=== PATIENT | female | born 1955 | race Caucasian/White ===

== ENCOUNTER → 2019-07-15 | Outpatient (CLI) | payer MEDICARE ==
--- NOTE | 2019-07-16 12:05 | SLEEP ---
DATE OF STUDY: 07/15/2019 SLEEP STUDY ATTENDING PHYSICIAN: Dr. Bry Alarcon. INDICATIONS: The patient is 64 years' old who weighs 248 pounds with a BMI of 43. The patient's [place] score was 17. The patient had a previous diagnosis of obstructive sleep apnea and had gained 20 pounds. TECHNIQUE AND FINDINGS: During the night study, the patient spent 452 minutes in the bed and slept for 370 minutes with a sleep efficiency of 82%. Sleep latency was 5 minutes with a REM latency of 225 minutes. Sleep architecture showed increased stage 1 sleep, normal stage 2 sleep, increased slow wave, and normal REM sleep. During the initial diagnostic portion of the study, the patient slept for 82 minutes. During that time, there were 16 obstructive apneas, 17 mixed apneas and no central apneas, and 18 hypopneas. The patient's apnea-hypopnea index was 85 per hour. Supine sleep was not seen and REM sleep was also not seen during the diagnostic portion. EKG monitoring revealed normal sinus rhythm, average heart rate 87 beats per minute, no sustained arrhythmias observed. Nocturnal oximetry study revealed mean oxygen saturation of 93% with the lowest of 85%. For 8.8% of time, oxygen saturation remained between 80% and 89%. PLMS were seen at index of 42 per hour and 5 per hour caused EEG arousals. The patient met the criteria for CPAP initiation. It was started at 5 cm water and titrated up to 15 cm water. At the final pressure, the patient slept for 178 minutes. During that time, the patient's apnea-hypopnea index was reduced to 2 per hour. The patient had supine as well as lateral REM sleep. Oxygen saturation remained above 90%. The patient used a small-sized full face mask. IMPRESSION: 1. Severe sleep apnea-hypopnea syndrome at an apnea-hypopnea index of 85 per hour. 2. Nocturnal hypoxia secondary to obstructive sleep apnea but resolved with CPAP. 3. Moderate periodic limb movements. RECOMMENDATIONS: 1. CPAP at 15 cm water completely eliminated the patient's sleep apnea and should be used on a nightly basis. 2. Follow up in 4-6 weeks to assess compliance with CPAP and to document clinical improvement. 3. Weight loss is strongly advised. 4. Avoid POLL CLERK depressants. 5. Cautioned regarding driving until symptoms of sleep apnea resolve with the use of CPAP. 6. The patient should also be further evaluated for symptoms of restless legs during the day and if present, it can be treated with dopaminergic-agonist agents. OLAMIDE JONES MD DR: MILES/lisette JOB#: [id number] / [id number] Bry Teixeira
== END | disposition home or self-care (01) ==
LOC: RT 18:52
PROVIDERS: ATTEND Internal Medicine Critical Care Medicine
DX: G47.33 Obstructive sleep apnea (adult) (pediatric) (principal); G47.34 Idiopathic sleep related nonobstructive alveolar hypoventilation
CPT/HCPCS: 95810

== ENCOUNTER → 2020-12-07 | Outpatient (CLI) | payer MEDICARE ==
[~2020-12-07] MED LIST: LIDOCAINE 2%/EPI 1:100,000 20 ML VIAL. ONE
--- NOTE | 2020-12-07 09:41 | RAD ---
Examination: 1. Left breast stereotactic breast biopsy. 2. Left digital diagnostic mammogram. INDICATION: Left breast calcifications recommended for stereotactic biopsy. COMPARISON: Bilateral screening mammogram with 05/03/2020. TECHNIQUE: Informed consent was obtained and an appropriate procedural pause was observed. Using standard steril e technique, local anesthesia, and stereotactic mammographic imaging guidance, multiple vacuum assist ed 9 gauge core needle biopsy samples were obtained of the pair of calcifications in the superior bere tral left breast and a robbin-shaped biopsy marker was deployed at the biopsy site after needle removal and hemostasis ensured with direct breast compression for several minutes. Post procedure mammogram showed satisfactory deployment of the biopsy marker with no postbiopsy hemat heriberto. Postprocedure instructions reviewed and patient discharged in stable condition to follow up with her referring physician. IMPRESSION: Successful left breast stereotactic biopsy of calcifications. Pathology results are pending. An adden dum will be issued once pathology results become available. Electronically signed by: Veronica Tierney MD (12/07/2020 9:38 AM) [id number]
--- NOTE | 2020-12-08 16:06 | PATHOLOGY ---
[facility] Accession Number: [id number] . 01 Material submitted: . breast - LEFT BREAST TISSUE. Modifiers: left . 02 Diagnosis: Breast tissue, left breast stereotactic needle biopsies: - Fibrocystic changes with the following components: - Stromal fibrosis. - Duct ectasia. - Microcystic change. - Few coarse calcifications identified. (JPM:environmental scientist; 12/08/2020) MBR 12/08/2020 1026 Local . 02 Comment: There are a few coarse calcifications identified within areas of periductal dense stromal sclerosis. There is no atypia or evidence of malignancy. (JPM:environmental scientist; 12/08/2020) . 02 Electronically signed: . Bry Blake MD, Pathologist NPI- [id number] . 01 Gross description: . Received in formalin labeled "Margy Wynn left breast are multiple sherwood-yellow cylindrical core fragments ranging from 0.6-2.1 cm in length each have a diameter of 0.2 cm. The specimen is entirely submitted in cassette A1-A3. The specimen is removed from the patient at 0840, placed in formalin at 0847 on December 07, 2020, and it not removed from formalin until 2150 on December 07, 2020. ([facility]; 12/07/2020) GZA/GZA 12/08/2020 1024 Local . 02 Pathologist provided ICD-10: N60.32, N60.42 . 02 CPT . 922364 Specimen Comment: A courtesy copy of this report has been sent to [phone] Specimen Comment: Report sent to Performed at: [address], [place], [place] [id number] MD Brice Reinoso MD Phone: [phone] Performed at: 02 [facility] [address], [place] [id number] MD Bry Blake MD Phone: [phone]
== END | disposition home or self-care (01) ==
LOC: MAMMO 08:26
PROVIDERS: ATTEND Surgery
DX: R92.8 Other abnormal and inconclusive findings on diagnostic imaging of breast (principal); N60.32 Fibrosclerosis of left breast; N60.42 Mammary duct ectasia of left breast
CPT/HCPCS: 19081; 77065; J3490